=== PATIENT | male | born 1955 | race Caucasian/White ===

== ENCOUNTER → 2018-10-14 11:45 | Outpatient (CLI) | payer OTHER, SELFPAY ==
--- NOTE | 2018-10-14 11:47 | XR_ITS ---
XR knee LT 4V HISTORY: Left knee pain ITS.REASON: B/L KNEE PAIN ORDERING PHYSICIAN: Karon Hayes MD PATIENT AGE: 62 years COMPARISON: None FINDINGS: No fracture or dislocation. No lytic or blastic change. Normal mineralization. There are minimal osteoarthritic changes at the patellofemoral joint and medial compartment. Small area of cortical sclerosis involves the distal femur medially nonspecific. IMPRESSION: Mild not terribly osteoarthritis
--- NOTE | 2018-10-14 11:47 | XR_ITS ---
XR knee RT 4V HISTORY: Right knee pain ITS.REASON: B/L KNEE PAIN ORDERING PHYSICIAN: Karon Hayes MD PATIENT AGE: 62 years COMPARISON: None FINDINGS: Minimal osteophytes noted along the posterior patella with slight decrease in the joint space medially. There is a small calcific density just superior to the medial tibial spine consistent with a loose body at 3 mm. IMPRESSION: Mild osteoarthritis with small loose body
== END ==
PROVIDERS: PCP Family Medicine; Visit Provider Orthopaedic Surgery
DX: M25.561 Pain in right knee (principal); M25.562 Pain in left knee
CPT/HCPCS: 73564

== ENCOUNTER → 2019-06-07 10:20 | Outpatient (POV) | payer OTHER, SELFPAY | PROVIDERS: Visit Provider Dermatology | DX: Z00.00 Encounter for general adult medical examination without abnormal findings (principal) ==

== ENCOUNTER 2020-08-21 08:30 | Outpatient (RCR) | payer OTHER, SELFPAY ==
--- NOTE | 2020-07-18 15:16 | HMH.PTOPEV ---
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 Pt reports recent 'bent-over lifting' event exacerabated chronic low back stiffness, and intermittent pain/soreness . Pt currently reports L>R sided LBP, w/intermittent referred pain into L groin area. Chief Complaint Pain,Stiff Symptom Type Ache,Sharp,Dull Symptoms Relieved By Rest/Positioning,Ice Symptoms Aggravated By Bending/Stooping,Physical Activity,Lifting Prior Functional Limitations Lifting Current Functional Limitations Lifting,Housework,Bending/ Stooping Symptom Description Constant but Variable Level of pain today (0-10) 3 Pain scale - at its best (0-10) 2 Pain scale - at its worst (0-10) 8 Lumbopelvic Eval Posture Thoracic Spine Posture Standing Position Flattened Lumbar Spine Posture Standing Position Flattened Assistive device Assistive Devices None / NA Palapation tenderness bilateral lumbar spinal tenderness Yes: 2-3/4 paraspinal tenderness Yes: 1-2/4 buttock tenderness No Lumbar/Sacral Palpation Findings Tenderness Accessory Movement L-spine Vertebrae Accessory Movements [place] that Elicit Symptoms L3 bilateral L4 bilateral L5 bilateral S1 bilateral Range of Motion Lumbar Spine Active Flexion Range of 0-40 Motion (degrees) Lumbar Spine Active Extension Range of 0-5 Motion (degrees) Left Lumbar Spine Lateral Flexion Active 0-25 Range of Motion (degrees) Right Lumbar Spine Lateral Flexion 0-25 Active Range of Motion (degrees) Lumbar Spine ROM Limitations Soft Tissue Tightness,Pain Manual Muscle Test Bilateral Knee Extension Strength Grade 5 Normal Knee Flexion Strength Grade 4 Good Hip Flexion Strength Grade 4 Good Hip External Rotation Strength Grade 4- Good- Hip Internal Rotation Strength Grade 4- Good- Extensor Hallucis Longus Strength Grade 5 Normal Ankle Dorsiflexion Strength Grade 5 Normal Gas
== END 2020-08-21 08:35 | disposition home or self-care (01) ==
LOC: PT 08:30
PROVIDERS: Visit Provider Family Medicine
DX: M54.5 Low back pain (principal)
CPT/HCPCS: 97010; 97012; 97014; 97035; 97110; 97163; G0283

== ENCOUNTER 2020-08-29 13:24 | Emergency (ER) | payer OTHER, SELFPAY ==
[2020-08-29 13:32] VITALS: BP 137/80; PULSE 72; RESP 18; O2SAT 98; BMI 30.2
--- NOTE | 2020-08-29 13:47 | HMH.EDUTC ---
[facility] Disposition Clinical Impression: Encounter for laboratory testing for COVID-19 virus Disposition: Home, Self-Care Condition on Discharge: Good Instructions: Preventing the Spread of Coronavirus Discharge Instructions Additional Instructions: *Monitor Temp, Over the counter Motrin or Tylenol as directed/as needed Tylenol every 4 hours and Motrin every 6 hours (as long as your family doctor has told you that you can take it) for fever or pain. and straight to ER if unable to lower temp less than 101.0 after medication given *Warm salt water gargles may help to soothe the throat *Throat Lozenges *Warm fluids like tea with honey may help to soothe the throat *Sleep elevated *Humidifier/Vaporizer *Flonase 2 sprays in each nostril daily but be aware that it may take 2-3 days before you notice improvement Follow up IMMEDIATELY for new or worsening symptoms or no Noticeable improvement over the next 48-72 hours. 911 for difficulty breathing or swallowing You was tested for today for COVID19 your test result should be back later this evening, you may call back later this evening to see if your test results are back and the result You was given a handout with instructions for Self Quarantine and Self isolation for while you wait on test results and what to do if they are positive Prescriptions: Fluticasone Propionate [Flonase 50mcg nasal spray 16gm] 1 spr NS DAILY #1 bottle Transmission Status: Pending to [facility] #[id number] Referrals: Pawel Yi MD [Primary Care Provider] - As needed Forms: Work/School Release Time of Disposition: 13:51 Medical Decision Making - Markus Inquiry Pt receiving controlled substance: No Markus was queried for this patient: No Vital Signs: 08/29/20 13:32 Pulse Rate [Radial] 72 Respiratory Rate 18 Blood Pressure [Right Arm] 137/80 Blood Pressure Mean [Right Arm] 99 Blood Pressure Source [Right Arm] Automatic Cuff Blood Pressure Position [Right Arm] Sitting 02 Sat by Pulse Oximetry 98 Oxygen Delivery Method Room Air Orders (Tests/Meds): ORDERS Category Date Time Status Covid-19 Nasal PCR ([facility]) Routine Lab 08/29/20 13:37 Ordered [facility] HPI - General Stated complaint: covid exposure Time Seen by Provider: 08/29/20 13:47 Mode of Arrival: Ambulatory Source of Information: Patient Limitations: No Limitations Description of Symptoms (Recalled from Triage Doc. 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 a faciltiy the other day and someone he came in contact with has recently tested positive so he come in to get checked - Related Data Home Medications Medication Instructions Recorded Confirmed B12/Levomefolate Calcium/B-6 1 each PO DAILY 07/12/18 10/14/18 [Folbic Rf Tablet] Cholecalciferol (Vitamin D3) [D3 2,000 unit PO DAILY 07/12/18 10/14/18 Dots] Lisinopril/Hydrochlorothiazide 1 tab PO DAILY 07/19/18 10/14/18 [Lisinopril-Hctz 20-25 mg Tab] Pravastatin Sodium [Pravachol 40mg 40 mg PO DAILY 07/19/18 10/14/18 Tablet] Previous Rx's Medication Instructions Recorded Fluticasone Propionate [Flonase 1 spr NS DAILY #1 bottle 08/29/20 50mcg nasal spray 16gm] Allergies Allergy/AdvReac Type Severity Reaction Status Date / Time No Known Allergies Allergy Unknown Uncoded 10/13/17 14:42 - Worker's Comp Is this a Worker's Comp case?: No [facility] History - Hepatitis A Screen Drug use history?: No High risk sexual behaviors?: No History of sexually transmitted infection?: No Currently employed?: No Childcare worker?: No Do you have indoor plumbing?: Yes Do you have electricity?: Yes Attestation statement:: This pat
[2020-08-29 14:05] VITALS: BP 137/80; PULSE 72; RESP 18; TEMP 36.7; O2SAT 98
[2020-08-30 17:28] LABS: Covid-19 Nasal PCR Sendout Lex Not Detected
== END 2020-08-29 14:06 | disposition home or self-care (01) ==
PROVIDERS: Emergency Provider Nurse Practitioner; PCP Family Medicine
DX: Z20.828 Contact with and (suspected) exposure to other viral communicable diseases (principal); E11.9 Type 2 diabetes mellitus without complications; E78.5 Hyperlipidemia, unspecified; I10 Essential (primary) hypertension; F17.290 Nicotine dependence, other tobacco product, uncomplicated
CPT/HCPCS: 99201; U0004

== ENCOUNTER 2020-10-12 08:30 | Outpatient (RCR) | payer OTHER, SELFPAY ==
--- NOTE | 2020-10-04 08:54 | HMH.PTOPEV ---
PT Outpatient Evaluation Rehab PT Outpatient Evaluation Start: 10/04/20 08:41 Freq: Status: Active Protocol: Document 10/04/20 08:41 MICHAEL (Rec: 10/04/20 08:54 MICHAEL [id number]) Electronically Signed By Med Mills, PT 10/04/20 08:41 Outpatient Therapy Subjective History Subjective History Patient is a 64 year old male presenting to outpatient PT with reports of acute L mid- thoracic spine pain specific to T1-T4. Symptom onset approx 2 weeks ago. No specific mechanism of injury to report. Current medication use includes steroid dose pack and muscle relaxers. No recent imaging to report. Main complaint is pain with cervical extension. Comorbidities include hx of HTN, HL and diabetes. Chief Complaint Pain,Spasms Symptom Type Dull Symptoms Relieved By Rest/Positioning Symptoms Aggravated By Physical Activity,Lifting Prior Functional Limitations None Current Functional Limitations Lifting,Housework,Driving Symptom Description Constant but Variable Level of pain today (0-10) 5 Pain scale - at its best (0-10) 4 Pain scale - at its worst (0-10) 7 Cervical Eval Palpation Cervical Muscles L CT Junction,L Upper Trapezius Cervical/Thoracic Palpation Findings Tenderness Posture Head/C-Spine Posture Sitting Position C-Spine Flattened Head/C-Spine Posture Standing Position C-Spine Flattened Flexibility Deficits Upper Trapezius Muscle Length (L) Mild Tightness Levaetor Scapulae Muscle Length (L) Mild Tightness Pectoralis Minor Muscle Length (L) Mild Tightness Passive Joint Mobility Cervical PIVM WNL: R OA L OA R AA L AA R C2/3 L C2/3 R C3/4 L C3/4 R C4/5 L C4/5 R C5/6 L C5/6 R C6/7 L C6/7 R C7/T1 L C7/T1 AROM Cervical Spine Extension Active Range of 42 Motion (degrees)
== END 2020-10-12 08:35 | disposition home or self-care (01) ==
LOC: PT 08:30
PROVIDERS: PCP Family Medicine; Visit Provider Family Medicine
DX: M62.838 Other muscle spasm (principal)
CPT/HCPCS: 97010; 97014; 97110; 97140; 97163; G0283

== ENCOUNTER → 2022-08-13 10:37 | Outpatient (CLI) | payer OTHER, SELFPAY ==
[2022-08-13 10:56] LABS: Coronavirus 19, PCR Not Detected (NotDetected); Influenza A, PCR Not Detected (NotDetected); Influenza B, PCR Not Detected (NotDetected)
[2022-08-13 11:10] LABS: Basophils # 0.1 K/mm3 (0-0.2); Eosinophils # 0.1 K/mm3 (0.0-0.4); Eosinophils % 1.2 % (0.1-12.0); Hematocrit 42.8 % (42.0-52.0); Hemoglobin 14.4 g/dL (14.1-18.0); Lymphocytes # 1.4 K/mm3 (0.7-4.5); Lymphocytes % 16.7 % (10-50); Mean Corpuscular HGB Conc 33.8 g/dL (31.8-35.4); Mean Corpuscular Hemoglobin 31.4 pg (27.0-31.2); Mean Platelet Volume 8.3 fl (7.4-10.4); Monocytes # 0.5 K/mm3 (0.1-1.0); Monocytes % 5.9 % (1.7-9.3); Neutrophils # 6.5 K/mm3 (1.8-7.8); Neutrophils % 75.1 % (37.0-80.0); Platelet Count 217 K/mm3 (142-424); Red Cell Distribution Width 12.9 % (11.5-17.5); White Blood Count 8.6 K/mm3 (4.8-10.8)
== END ==
PROVIDERS: PCP Family Medicine; Visit Provider Physician Assistant
DX: Z20.822 Contact with and (suspected) exposure to COVID-19 (principal)
CPT/HCPCS: 36415; 85025; C9803; U0003; U0005

== ENCOUNTER → 2022-11-17 12:30 | Outpatient (CLI) | payer OTHER, SELFPAY ==
--- NOTE | 2022-11-17 12:43 | XR_ITS ---
FINAL REPORT CLINICAL HISTORY: LT ELBOW PAIN x 2 days no trauma FINDINGS: AP, oblique, and lateral views of the left elbow were obtained. There is no prior exam for comparison. There is no acute fracture or dislocation. There is degenerative joint disease. There is no joint effusion. There is a calcification adjacent to the medial epicondyle that could be within the common flexor tendon. IMPRESSION: No acute osseous abnormality of the left elbow. Reviewed, Interpreted and Dictated by Pinky Wei MD Transcribed by Jd Solis Authenticated and [facility]
== END ==
PROVIDERS: PCP Physician Assistant; Visit Provider Nurse Practitioner Family
DX: M25.522 Pain in left elbow (principal)
CPT/HCPCS: 73080

== ENCOUNTER → 2023-04-30 10:20 | Outpatient (CLI) | payer OTHER, SELFPAY ==
--- NOTE | 2023-04-30 10:24 | XR_ITS ---
FINAL REPORT CLINICAL HISTORY: Tingling radiating down Lt arm from cervical region. NKT FINDINGS: LEFT SHOULDER SERIES Three views of the left shoulder were obtained. There is no acute fracture or dislocation. There is mild degenerative change of the acromioclavicular joint. There is mild degenerative change of the glenohumeral joint. There is no soft tissue abnormality. IMPRESSION: Mild degenerative change of the acromioclavicular joint. Mild degenerative change of the glenohumeral joint. Reviewed, Interpreted and Dictated by Osbaldo Reyna III, MD Transcribed by Parish Sol Authenticated and . [facility]
--- NOTE | 2023-04-30 10:24 | XR_ITS ---
FINAL REPORT CLINICAL HISTORY: Tingling radiating distally to Lt shoulder, pain in Lt region cervical region, NKT FINDINGS: CERVICAL SPINE Six views demonstrate no acute fracture. There is mild and moderate degenerative change with multilevel osteophytes. There is a chronic soft tissue calcification posterior to C4 and C5. There is multilevel mild and moderate neural foraminal narrowing that is worst at C3-4. There is no malalignment. IMPRESSION: Mild and moderate degenerative change with multilevel osteophytes. Multilevel mild and moderate neuroforaminal narrowing which is worst at C3-4. Reviewed, Interpreted and Dictated by Osbaldo Reyna III, MD Transcribed by Parish Sol Authenticated and [facility]
== END ==
PROVIDERS: PCP Physician Assistant; Visit Provider Physician Assistant
DX: M54.2 Cervicalgia (principal); M25.512 Pain in left shoulder
CPT/HCPCS: 72050; 73030

== ENCOUNTER 2023-07-09 08:00 | Outpatient (RCR) | payer OTHER, SELFPAY ==
--- NOTE | 2023-05-22 09:27 | HMH.PTOPEV ---
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 Symptoms of insidious onset starting approx 2 months ago. Most recent imaging indicates multilevel DDD/osteophytes and neuroforaminal narrowing worst at C3/4. Symptom relief noted with postural correction and cervical flx/ SBr. Comorbidities include hx of HTN, diabetes and HL. Chief Complaint Pain,Stiff,Paresthesia, Weakness Symptom Type Ache,Numbness,Tingling Symptoms Relieved By Rest/Positioning Symptoms Aggravated By Physical Activity,Lifting Prior Functional Limitations None Current Functional Limitations Reaching,Lifting,Housework Symptom Description Intermittent Level of pain today (0-10) 0 Pain scale - at its best (0-10) 0 Pain scale - at its worst (0-10) 3 Cervical Eval Palpation Cervical Muscles L Upper Trapezius Cervical/Thoracic Palpation Findings Tenderness Posture Head/C-Spine Posture Sitting Position C-Spine Flattened Head/C-Spine Posture Standing Position C-Spine Flattened Flexibility Deficits Upper Trapezius Muscle Length (L) Moderate Tightness Pectoralis Minor Muscle Length (L) Moderate Tightness Passive Joint Mobility Cervical PIVM Dec: R OA L OA R AA L AA R C2/3 L C2/3 R C3/4 L C3/4 R C4/5 L C4/5 R C5/6 L C5/6 R C6/7 L C6/7 R C7/T1 L C7/T1 AROM Cervical Spine Extension Active Range of 10 Motion (degrees) Cervical Spine Flexion Active Range of 42
--- NOTE | 2023-06-16 09:31 | HMH.RHREAS ---
Rehab Reassessment Rehab OP Re-assessment Start: 05/22/23 09:11 Freq: Status: Active Protocol: Document 06/16/23 09:20 MICHAEL (Rec: 06/16/23 09:31 MICHAEL [id number]) E-signed By Med Mills, PT Rehab Re-assessment Subjective Subjective Patient reports 20% improvement since start of care. Objective Objective Notes AROM: flx 36; ext 40; SBr32; SBl 38; Rr 41; Rl 43 MMT: WNL except for L bicep, wrist ext, finger abd 4/5; top stop attacher strength R 60lb L 40lb Pain: 3/10 today; 8/10 at worst over past week Neuro: persistent NT to C 6// 8 dermatomes Assessment Progress Assessment Progressing as Expected Assessment Notes Decreased radicular symptoms with postural correction. Introduced dry needling for L UT trigger points/mm tension. Decreased post-Rx. Patient would benefit from continuing with skilled PT services in order to address functional limitation with reaching/ lifting/grasping activities. Patient goals met STG 2 Goals Not Met All others Revised Goals NA Plan Plan Continue with current POC. Frequency of Therapy 2x/week Duration of therapy 4 week Time and Billing Re-Eval Time 14 Re-Eval Billing Units 1 PHYSICIAN CERTIFICATION: I certify the specified therapy services for Jose Guerrero are required, authorized, and reviewed every 30 days.
== END 2023-07-09 08:05 | disposition home or self-care (01) ==
LOC: PT 08:00
PROVIDERS: Visit Provider Physician Assistant
DX: R20.2 Paresthesia of skin (principal)
CPT/HCPCS: 20560; 97010; 97012; 97014; 97110; 97140; 97163; 97164; 97530; G0283

== ENCOUNTER 2025-01-02 11:18 | Outpatient (CLI) | payer MEDICARE, OTHER, SELFPAY ==
--- NOTE | 2025-01-02 11:27 | XR_ITS ---
FINAL REPORT CLINICAL HISTORY: SHOULDER RIGHT PAIN lateral view in with shoulder xray COMPARISON: None FINDINGS: A single view of the right scapula was obtained. Lateral view is with shoulder exam. There is no acute fracture or dislocation. There are mild hypertrophic changes of the AC joint. The scapula is intact. Soft tissues are unremarkable. IMPRESSION: Mild degenerative changes without acute bony abnormality. Reviewed, Interpreted and Dictated by Gonzalo Bush MD Transcribed by Patricia Hdz Authenticated and . [facility]
--- NOTE | 2025-01-02 11:27 | XR_ITS ---
FINAL REPORT CLINICAL HISTORY: .pain COMPARISON: None FINDINGS: 2 views of the right clavicle were obtained. There is no acute fracture. There are mild hypertrophic changes of the AC joint. There is no soft tissue abnormality. IMPRESSION: Mild degenerative changes without acute bony abnormality. Reviewed, Interpreted and Dictated by Gonzalo Bush MD Transcribed by Patricia Hdz Authenticated and [facility]
--- NOTE | 2025-01-02 11:27 | XR_ITS ---
FINAL REPORT CLINICAL HISTORY: .pain COMPARISON: None FINDINGS: RIGHT SHOULDER Three views demonstrate no acute fracture or dislocation. There are mild hypertrophic changes of the AC joint. The soft tissues are unremarkable. IMPRESSION: Mild degenerative changes without acute bony abnormality. Reviewed, Interpreted and Dictated by Gonzalo Bush MD Transcribed by Patricia Hdz Authenticated and [facility]
== END 2025-01-02 23:59 | disposition home or self-care (01) ==
LOC: RAD 11:23
PROVIDERS: PCP Physician Assistant; Visit Provider Nurse Practitioner Family
DX: M25.511 Pain in right shoulder (principal)
CPT/HCPCS: 73000; 73010; 73030